=== PATIENT | female | born 1980 | race Caucasian/White ===

== ENCOUNTER → 2019-10-02 12:37 | Outpatient (CLI) | payer OTHER, SELFPAY ==
--- NOTE | ~2019-10-02 | MR_ITS ---
EXAMINATION: MR hip RT w con DATE: 10/02/2019 15:12 INDICATION: Right hip pain TECHNIQUE: Magnetic resonance (MR) arthrogram of the right hip was performed following intra-articula r gadolinium contrast injection and without intravenous contrast. Details of the hip joint injection have been dictated separately. Sequences included small field of view of the right hip with axial and sagittal T1-weighted FS SE and T2-weighted FS FSE and coronal T1-weighted SE and T2-weighted FS FSE . Additional T1-weighted FGRE images in a radial pattern oriented orthogonal to the acetabular rim we re obtained for evaluation of the labrum. COMPARISON: None. FINDINGS: Bones/labrum/cartilage: Alignment is normal. No fracture, avascular necrosis or pathologic marrow replacing process. Suggest ion of decreased right femoral head neck offset anterosuperiorly where there is mild cystic change. T he anterior labrum however appears normal. On the radial images there is increased intrasubstance sig nal at the posterosuperior right acetabular labrum does not appear to contact the articular surface a nd which is without corresponding contrast enhancement on the T1-weighted images to suggest a discret e labral tear, potentially representing mucoid type degeneration. Articular cartilage is normal. Fluid: No loose bodies in the contrast enhanced right hip joint space. Physiologic amount fluid in the left hip joint space. Soft tissues: Normal and symmetric muscle bulk and signal in the pelvis and visualized proximal thighs. The bilater al iliopsoas and proximal hamstring tendons are normal. Roughly symmetric mild tendinopathy without d iscrete tear at the distal gluteus medius minimus tendons. The gluteus medius medius and tylor tend ons appear normal. Limited evaluation of visceral organs of the pelvis is unremarkable. No pathologi cammy enlarged pelvic/inguinal lymphadenopathy. IMPRESSION: 1. 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 2. Mild bilateral gluteus minimus tendinopathy without discrete tear. Reviewed, dictated and finalized at location A. IMPRESSION: 1. Increased intrasubstance signal at the posterior superior right acetabular l abrum without contrast enhanced tear potentially related to intrameniscal mucoi d degeneration. 2. Mild bilateral gluteus minimus tendinopathy without discrete tear.
--- NOTE | ~2019-10-02 | XR_ITS ---
EXAMINATION: XR fl inj hip RT for MR/CT EXAM DATE: 10/02/2019 14:27 INDICATION: Right hip pain. TECHNIQUE: A time-out was performed to verify the patient's name, date of , and procedure to b e performed. The procedure including the risks, benefits and alternatives were discussed with the pat ient. Risks discussed included bleeding and infection. The patient understood the risks and agreed to proceed. The skin overlying the right hip joint was prepped and draped in usual sterile fashion. An esthetic was administered with 3 milliliters 1% lidocaine subcutaneously. A 22 G needle was advanced under fluoroscopic guidance into the joint. A total of 9 mL of 1:200 of 529 mg/mL Multihance, 1:4 l idocaine, and 1:4 Omnipaque 240 was instilled. The needle was removed and the entry site was cleane d and dressed. There were no immediate complications. The DAP for this procedure was 0.4 Gycm2. Th e procedure was performed on 10/02/2019. FINDINGS: Real-time fluoroscopy demonstrates the needle and contrast in the right hip joint. IMPRESSION: Successful right hip joint injection. Reviewed, dictated and finalized at location B.
== END ==
PROVIDERS: Visit Provider Orthopaedic Surgery
DX: M16.11 Unilateral primary osteoarthritis, right hip (principal)
CPT/HCPCS: 20610; 73722; 77002; A9577; Q9966

== ENCOUNTER → 2019-10-06 08:40 | Outpatient (CLI) | payer OTHER, SELFPAY ==
--- NOTE | ~2019-10-06 | MMUS_ITS ---
EXAMINATION: MM diagnostic job LT w juana, US breast LT limited HISTORY: Six-month follow-up for probably benign left breast asymmetry, occasional yellow/brown nippl e discharge, and palpable lump in the upper outer quadrant of the breast. TECHNIQUE: Craniocaudal, mediolateral, and mediolateral oblique 3-D tomosynthesis images of the left breast were performed and synthetic 2-D images were generated. Spot compression views are also obtain ed. CAD analysis was submitted and interpreted. High resolution limited left breast ultrasound was pe rformed. COMPARISON: 01/14/2019 BREAST PARENCHYMAL COMPOSITION: There are scattered areas of fibroglandular density. FINDINGS: MAMMOGRAPHIC FINDINGS: The previously described left breast asymmetry on the craniocaudal view is no longer evident. There i s no suspicious mass, calcification, or architectural distortion. No mammographic correlate is identi fied for the reported nipple discharge or palpable abnormality of the upper outer quadrant. ULTRASOUND: No suspicious cystic or solid mass is identified in the area of the reported palpable abnormality of the breast. A 3 mm subareolar cyst is noted. IMPRESSION: 1. No persistent asymmetry of the left breast and no mammographic or sonographic correlate for the re ported nipple discharge or palpable lump of the upper outer quadrant. Clinical follow-up is recommend ed for the palpable lump and nipple discharge. 2. Recommend routine screening mammography. BI-RADS Category 2: Benign finding(s). Reviewed, dictated and finalized at location A. IMPRESSION: 1. No persistent asymmetry of the left breast and no mammographic or sonographi c correlate for the reported nipple discharge or palpable lump of the upper out er quadrant. Clinical follow-up is recommended for the palpable lump and nipple discharge. 2. Recommend routine screening mammography. BI-RADS Category 2: Benign finding(s).
== END ==
PROVIDERS: PCP Internal Medicine; Visit Provider Internal Medicine
DX: R92.8 Other abnormal and inconclusive findings on diagnostic imaging of breast (principal)
CPT/HCPCS: 76642; 77061; 77065; G0279

== ENCOUNTER 2020-02-24 06:54 | Outpatient (NON) | payer OTHER, SELFPAY ==
[2020-02-24 22:14] LABS: SARS-CoV-2 RNA PCR Negative
== END 2020-02-24 06:55 ==
PROVIDERS: PCP Internal Medicine; Visit Provider Pediatrics
DX: Z20.822 Contact with and (suspected) exposure to COVID-19 (principal)
CPT/HCPCS: C9803; U0003; U0005

== ENCOUNTER → 2023-03-18 15:11 | Outpatient (CLI) | payer OTHER, SELFPAY ==
--- NOTE | ~2023-03-18 | MM_ITS ---
EXAMINATION: MM screening [facility] BI w juana HISTORY: Screening mammogram TECHNIQUE: Craniocaudal and mediolateral oblique 3-D tomosynthesis images were obtained and synthetic 2-D images were generated. CAD analysis was submitted and interpreted. COMPARISON: 10/06/2019, 01/14/2019 BREAST PARENCHYMAL COMPOSITION: There are scattered areas of fibroglandular density. FINDINGS: RIGHT BREAST: No suspicious mass, calcification, or architectural distortion are identified to sugges t malignancy. There has been no suspicious interval change. LEFT BREAST: There are calcifications in the middle and anterior third of the outer breast. IMPRESSION: 1. Left breast calcifications. 2. Magnification views are recommended. BI-RADS Category 0: Incomplete: Needs additional imaging evaluation. Reviewed, dictated and finalized at location A. ERY SHOPPER
== END ==
PROVIDERS: PCP Internal Medicine; Visit Provider Internal Medicine
DX: Z12.31 Encounter for screening mammogram for malignant neoplasm of breast (principal); R92.8 Other abnormal and inconclusive findings on diagnostic imaging of breast
CPT/HCPCS: 77063; 77067

== ENCOUNTER → 2023-04-17 09:09 | Outpatient (CLI) | payer OTHER, SELFPAY ==
--- NOTE | ~2023-04-17 | MMUS_ITS ---
EXAMINATION: MM diagnostic mammo unilat LT, US breast LT limited HISTORY: Left breast calcifications reported on March 18, 2023 screening mammogram TECHNIQUE: ML view.Magnification views in 3 projections. CAD analysis was submitted and interpreted. High resolution upper outer quadrant, lower outer quadrant and subareolar left breast ultrasound was performed. COMPARISON: March 18, 2023 bilateral screening mammogram 10/06/2019 diagnostic left mammogram and limited left breast ultrasound examination FINDINGS: MAMMOGRAPHIC FINDINGS: There are multiple microcalcifications, the majority relatively uniform punctate circular benign-appe aring microcalcifications, with occasional slightly smaller oval benign-appearing microcalcifications . No linear or branching microcalcifications are noted. ULTRASOUND: Real-time imaging of upper outer and lower-outer quadrants and subareolar area including the regions of microcalcifications reveals several benign cysts, including 3.1 x 3.6 x 3.9 mm cyst at 2:00 4 cm f rom the nipple, 1.9 x 4.3 x 4.5 mm 1:00 subareolar cyst and 1.4 x 3.8 x 4.2 mm 3:00 subareolar cyst. No suspicious mass or shadowing is detected. IMPRESSION: 1. Benign findings 2. Routine mammographic screening is recommended BI-RADS Category 2: Benign finding(s). Reviewed, dictated and finalized at location A. [employer] IMPRESSION: 1. Benign findings 2. Routine mammographic screening is recommended BI-RADS Category 2: Benign finding(s).
== END ==
PROVIDERS: PCP Internal Medicine; Visit Provider Internal Medicine
DX: R92.8 Other abnormal and inconclusive findings on diagnostic imaging of breast (principal)
CPT/HCPCS: 76642; 77065

== ENCOUNTER 2023-12-28 09:23 | Outpatient (CLI) | payer OTHER, SELFPAY ==
--- NOTE | ~2023-12-28 | XR_ITS ---
EXAM: XR_[id number]_CR DATE: 12/28/2023 09:45 HISTORY: CERVICALGIA . COMPARISON: None available. FINDINGS: Craniocervical association and atlantoaxial joint are aligned. Mild degenerative change at the atlantodental interval No prevertebral soft tissue swelling. 1 mm anterolisthesis at C2-3. 2 mm anterolisthesis at C7-T1. Vertebral body heights are maintained. Mild disc space narrowing at C5-6. M ild facet and uncovertebral joint hypertrophy and sclerosis in the lower cervical spine. IMPRESSION: Multilevel mild anterolistheses. Mild degenerative disc disease at C5-6. Mild lower cervi ej facet/uncovertebral joint arthropathy. Reviewed, dictated and finalized at location K. AURANT CASHIER IMPRESSION: Multilevel mild anterolistheses. Mild degenerative disc disease at C5-6. Mild lower cervical facet/uncovertebral joint arthropathy.
== END 2023-12-28 09:24 | disposition home or self-care (01) ==
LOC: MICIMG 09:23
PROVIDERS: PCP Internal Medicine; Visit Provider Internal Medicine
DX: M50.322 Other cervical disc degeneration at C5-C6 level (principal)
CPT/HCPCS: 72040